=== PATIENT | male | born 1950 | race Caucasian/White ===

== ENCOUNTER 2025-06-13 06:35 | Inpatient (IN) | payer MEDICARE, OTHER ==
[~2025-06-13] VITALS: Ht 170.2 cm; Wt 85.5 kg
[2025-06-13] MEDS ORDERED: ANESTHESIA TRAY IN PYXIS 1 EA TRAY MC ONE (06:57)
[2025-06-13] MEDS ORDERED: LIDOCAINE 2%-EPI 1:100,000 30 ML VIAL ONE (06:57)
[2025-06-13] MEDS ORDERED: dexaMETHasone SOD PHOSPHATE 2 ML ONE (06:57)
[2025-06-13] MEDS ORDERED: VANCOMYCIN 1 GM VIAL ONE (06:57)
[2025-06-13] MEDS ORDERED: OXYMETAZOLINE HCL NASAL SPRAY 30 ML BOTTLE NS ONE (06:57)
[2025-06-13] MEDS ORDERED: FENTANYL PF 250MCG/5ML AMPUL ONE (07:20)
[2025-06-13] MEDS ORDERED: ROCURONIUM BROMIDE 50 MG/5 ML ONE (07:20)
[2025-06-13] MEDS ORDERED: LABETALOL 20 MG/4 ML VIAL ONE (07:41)
[2025-06-13 11:00] VITALS: BP 131/72; TEMP 98.2; O2SAT 94
[2025-06-13] MEDS ORDERED: HYDROMORPHONE 1 MG/1 ML DISP.SYRIN IV PRN (12:30)
[2025-06-13] MEDS ORDERED: ACETAMINOPHEN 325 MG TABLET PO PRN ×2 (12:30→13:30)
[2025-06-13] MEDS ORDERED: ONDANSETRON HCL/PF 4 MG/2 ML VIAL IVP PRN ×2 (12:30→13:30)
[2025-06-13] MEDS ORDERED: MAG HYDROX/AL HYDROX/SIMETH 30 ML UDC PO PRN (13:30)
[2025-06-13] MEDS ORDERED: Z GUARD REMEDY 4 OZ OINT TP PRN (13:30)
[2025-06-13] MEDS ORDERED: MAGNESIUM HYDROXIDE 30 ML UDC PO PRN (13:30)
[2025-06-13 16:00] VITALS: BP 157/84; TEMP 98.1; O2SAT 95
[2025-06-13] MEDS: IV NS 0.9% 1,000 ML IV PRN (16:06)
[2025-06-13] MEDS: VANCOMYCIN 1 GM in IV D5W 250ml IV SCH (18:32)
[2025-06-13 20:00] VITALS: BP 121/61; TEMP 97.9; O2SAT 94
[2025-06-14 07:32] LABS: PLATELET COUNT (AUTO) 179 K/uL (150-450); RED BLOOD CELL COUNT(AUTO) 4.51 MIL/uL (4.5-6.0); RED CELL DISTRIBUTION WIDTH 13.3 % (11.5-15.0); WHITE BLOOD COUNT (AUTO) 13.6 K/uL (4.3-11.0)
[2025-06-14 08:01] LABS: CALCIUM, SERUM 8.9 mg/dL (8.5-10.1); CREATININE 1.2 mg/dL (0.6-1.3); PHOSPHORUS 3.3 mg/dL (2.5-4.9); SODIUM SERUM 141.0 mmol/L (136-145); UREA NITROGEN, BLOOD 20.0 mg/dL (7-18)
== END 2025-06-14 10:00 | disposition home or self-care (01) | DRG 142 ==
LOC: DS 06:35 → MED 10:37
PROVIDERS: ADMIT Internal Medicine; ATTEND Internal Medicine
PROC: 0NST04Z Reposition Right Mandible with Internal Fixation Device, Open Approach (ICD-10-PCS; 2025-06-13)
PROC: 0NUV07Z Supplement Left Mandible with Autologous Tissue Substitute, Open Approach (ICD-10-PCS; 2025-06-13)
PROC: 0NUT07Z Supplement Right Mandible with Autologous Tissue Substitute, Open Approach (ICD-10-PCS; 2025-06-13)
PROC: 0N5V0ZZ Destruction of Left Mandible, Open Approach (ICD-10-PCS; 2025-06-13)
PROC: 0N5T0ZZ Destruction of Right Mandible, Open Approach (ICD-10-PCS; 2025-06-13)
PROC: 0NBV0ZZ Excision of Left Mandible, Open Approach (ICD-10-PCS; 2025-06-13)
PROC: 0NSV04Z Reposition Left Mandible with Internal Fixation Device, Open Approach (ICD-10-PCS; principal; 2025-06-13 07:30)
DX: S02.69XB Fracture of mandible of other specified site, initial encounter for open fracture (principal); X58.XXXA Exposure to other specified factors, initial encounter; M27.2 Inflammatory conditions of jaws; I10 Essential (primary) hypertension; F17.210 Nicotine dependence, cigarettes, uncomplicated; Z71.6 Tobacco abuse counseling; D16.5 Benign neoplasm of lower jaw bone; Y93.9 Activity, unspecified; Y92.009 Unspecified place in unspecified non-institutional (private) residence as the place of occurrence of the external cause; M27.49 Other cysts of jaw
CPT/HCPCS: 36415; 80048-TC; 83735-TC; 84100-TC; 85025-TC; A4217; A4223; A4338; C1713; G0378; J0360; J0461; J0690; J1100; J1885; J2704; J3010; J3373; J3490; J7030; J7060